=== PATIENT | male | born 2000 | race Caucasian/White ===

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

== ENCOUNTER 2021-01-02 17:28 | Emergency (ER) | payer MEDICAID ==
[2021-01-02] MEDS ORDERED: Erythromycin 1 GM OP ONE (17:29)
[2021-01-02 17:45] VITALS: BP 133/75; O2SAT 98
[2021-01-02] MEDS ORDERED: Fluor-I-Strip/Ful-Flo OP ONE ×3 (17:45→17:57)
[2021-01-02] MEDS ORDERED: TETRACAINE 0.5% STERI-UNIT SOL OP STA (17:46)
[2021-01-02] MEDS ORDERED: TETRACAINE 0.5% STERI-UNIT SOL OP ONE (17:47)
[2021-01-02] MEDS ORDERED: Eye-Stream Solution ONE ×2 (17:49→17:57)
[2021-01-02] MEDS ORDERED: Erythromycin 3.5 GM OPHTH. OP ONE (18:10)
--- NOTE | 2021-01-02 18:16 | ERPHSYRPT ---
- History of Present Illness Time Seen by Provider: 01/02/21 17:45 Source: patient Exam Limitations: no limitations Patient Subjective Stated Complaint: pt here for right eye pain for a week now Triage Nursing Assessment: pt alert, walked in, face mask in place, resp easy, has tearing and pain right eye Physician History: Patient is a 20-year-old male presents to our ED for evaluation of foreign body sensation to his right eyelid. Symptoms have been ongoing for approximately 1 week. 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 Patient was working on a park RV when rust fell onto his face. Patient states a pranay of rust fell into his eye. Patient did not irrigate his eye. Patient just tolerated the foreign body-like sensation up until today. No acute change in vision. Visual acuity is 20/20 on the left uninvolved eye. 20/30 in the right involved eye. No other issues reported. No nausea no vomiting no headache. No pain with extraocular motion. Symptoms are mild to moderate in intensity. Patient voices no other complaints or concerns at this time. Location: right eye Severity: moderate Apparent Injury: no Associated Symptoms: redness, foreign body sensation, blurred vision, No double vision Visual Assistive Devices: None Chemical Exposure: No Trauma: No Welding Arc/Tanning Bed Exposure: No Allergies/Adverse Reactions: No Known Drug Allergies Allergy (Verified 01/02/21 17:45) Hx Tetanus, Diphtheria Vaccination/Date Given: Yes (7 years) Hx Influenza Vaccination/Date Given: No Hx Pneumococcal Vaccination/Date Given: No Immunizations Up to Date: Yes Travel Risk - International Travel Have you traveled outside of the country in past 3 weeks: No - Coronavirus Screening Are you exhibiting any of the following symptoms?: No - Review of Systems Constitutional: No Symptoms, No Fever, No Chills Eyes: No Symptoms Ears, Nose, & Throat: No Symptoms Respiratory: No Symptoms, No Cough, No Dyspnea Cardiac: No Symptoms, No Chest Pain, No Edema, No Syncope Abdominal/Gastrointestinal: No Symptoms, No Abdominal Pain, No Nausea, No Vomiting, No Diarrhea Genitourinary Symptoms: No Symptoms, No Dysuria Musculoskeletal: No Symptoms, No Back Pain, No Neck Pain Skin: No Symptoms, No Rash Neurological: No Symptoms, No Dizziness, No Focal Weakness, No Sensory Changes Psychological: No Symptoms Endocrine: No Symptoms Hematologic/Lymphatic: No Symptoms Immunological/Allergic: No Symptoms All Other Systems: Reviewed and Negative - Past Medical History Pertinent Past Medical History: No Neurological History: No Pertinent History ENT History: No Pertinent History Cardiac History: No Pertinent History Respiratory History: No Pertinent History Endocrine Medical History: No Pertinent History Musculoskeletal History: No Pertinent History GI Medical History: No Pertinent History History: No Pertinent History Psycho-Social History: Other Male Reproductive Disorders: No Pertinent History Other Medical History: oppositional defiant disorder - Past Surgical History Past Surgical History: Yes Neuro Surgical History: No Pertinent History Cardiac: No Pertinent History Respiratory: No Pertinent History Gastrointestinal: No Pertinent History Genitourinary: No Pertinent History Musculoskeletal: Orthopedic Surgery Male Surgical History: No Pertinent History Other Surgical History: right thumb - Social History Smoking Status: Current every day smoker How long have you smoked: unknown Exposure to second hand smoke: Yes Alcohol Use: Socially Drug Use: marijuana Patient Lives Alone: Yes Significant Family History: no pertinent family hx - Nursing Vital Signs Nursing Vital Signs: Initial Vital Signs Temperature 97.0 F 01/02/21 17:38 Pulse Rate 78 01/02/21 17:38 Respiratory Rate 18 01/02/21 17:38 Blood Pressure 133/75 01/02/21 17:38 O2 Sat by Pulse Oximetry 98 01/02/21 17:38 Pain Scale Pain Intensity 0 - Physical Exam General Appearance: no apparent distress Vision Acuity Right Eye: 20/30 Vision Acuity Left Eye: 20/20 Intraocular Pressure (Tonopen): right (12) Eye Exam: right eye: PERRL, EOMI, left eye: normal inspection, bilateral eye: other (Negative Jayda sign. No obvious rust ring observed.) Ears, Nose, Throat Exam: normal ENT inspection, TMs normal, pharynx normal, moist mucous membranes, No dry mucous membranes, No TM abnormal (R), No TM abnormal (L) Neck Exam: normal inspection, non-tender, supple, full range of motion Respiratory Exam: normal breath sounds, lungs clear, No chest tenderness, No respiratory distress Cardiovascular Exam: regular rate/rhythm, normal heart sounds, normal peripheral pulses Gastrointestinal Exam: soft, normal bowel sounds, No tenderness Extremity Exam: normal inspection, normal range of motion Neurologic: alert, oriented x 3, cooperative, frit coater II-XII nml as tested, normal mood/affect Skin Exam: normal color, warm, dry Lymphatic: No adenopathy SpO2 Interpretation: normal SpO2: 98 O2 Delivery: Room Air - Course Nursing assessment & vital signs reviewed: Yes Ordered Tests: Medication Summary Discontinued Medications Generic Name Dose Route Start Last Admin Trade Name Jimmy PRN Reason Stop Dose Admin Erythromycin 3.5 gm 01/02/21 18:10 01/02/21 18:38 Erythromycin 3.5 Gm Ophth. OP 01/02/21 18:11 Not Given STAT ONE Eye Irrigation Solution Confirm 01/02/21 17:49 Eye-Stream Solution Administered 01/02/21 17:50 Dose 30 ml .ROUTE .STK-MED ONE Eye Irrigation Solution Confirm 01/02/21 17:57 Eye-Stream Solution Administered 01/02/21 17:58 Dose 30 ml .ROUTE .STK-MED ONE Eye Irrigation Solution 15 ml 01/02/21 18:36 01/02/21 18:37 Eye-Stream Solution OP 01/02/21 18:37 15 ml STAT ONE Administration Fluorescein Sodium 1 mg 01/02/21 17:45 01/02/21 17:52 Exojz-N-Nsdey/Ful-Aureliano OP 01/02/21 17:46 1 mg STAT ONE Administration Fluorescein Sodium Confirm 01/02/21 17:49 Xukox-S-Mxrbk/Ful-Aureliano Administered 01/02/21 17:50 Dose 1 mg OP .STK-MED ONE Fluorescein Sodium Confirm 01/02/21 17:57 Pipdr-O-Luhno/Ful-Aureliano Administered 01/02/21 17:58 Dose 1 mg OP .STK-MED ONE Tetracaine HCl 4 ml 01/02/21 17:46 01/02/21 17:51 Tetracaine 0.5% Steri-Unit Bridget OP 01/02/21 17:47 4 ml STAT STA Administration Tetracaine HCl Confirm 01/02/21 17:47 Tetracaine 0.5% Steri-Unit Bridget Administered 01/02/21 17:48 Dose 4 ml OP .STK-MED ONE - Progress Progress: improved Progress Note: 01/02/21 18:18 Patient reassessed. He is well. Perform using a Thomas lamp and fluorescein strip with tetracaine. No obvious foreign body or corneal abrasion observed. There was mild conjunctival injection. No pain with extraocular motion. Neg ative Jayda sign. Patient's pain/foreign body sensation resolved after application of tetracaine/fluorescein. Patient's involved eye was copiously irrigated with designated eye irrigation. Erythromycin ophthalmic antibiotic ointment was applied to the involved eye. A prescription for the same was forwarded the patient's pharmacy. Patient referred to diabetes clinical manager Alexandro Sher for further evaluation and treatment. Plan of care discussed with patient. He voices no other complaints or concerns at this time. His tetanus up-to-date. Counseled pt/family regarding: diagnosis, need for follow-up - Departure Departure Disposition: Home Clinical Impression: Eye pain Condition: Stable Critical Care Time: No Referrals: CASEY HARRIS, UNIVERSAL GRINDER SET UP OPERATOR [Primary Care Provider] - ALEXANDRO SHER OD [NON-STAFF PHY W/O PRIVILEGES] - Instructions: Foreign Body in Eye (DC) Additional Instructions: Discharge/Care Plan LISA GARDUNO was seen on 01/02/21 in the Emergency Room. The patient was counseled regarding Diagnosis,Lab results, Imaging studies, need for follow up and when to return to the Emergency Room. Prescriptions given: Discharge Note I have spoken with the patient and/or caregivers. I have explained the patient's condition, diagnosis and treatment plan based on the information available to me at this time. I have answered the patient's and/or caregiver's questions and addressed any concerns. The patient and/or caregivers have as good understanding of the patient's diagnosis, condition and treatment plan as can be expected at this point. The vital signs have been stable. The patient's condition is stable and appropriate for discharge from the emergency department. The patient will pursue further outpatient evaluation with the primary care physician or other designated or consulting physician as outlined in the discharge instructions. The patient and/or caregivers are agreeable to this plan of care and follow-up instructions have been explained in detail. The patient and/or caregivers have received these instruction. The patient/and or caregivers are aware that any significant change in condition or worsening of symptoms should prompt an immediate return to this or the closest emergency department or call 911. Prescriptions: Erythromycin Base 3.5 gm [Erythromycin 3.5 GM OPHTH.] 3.5 gm OP QID 7 Days #1 tube
[2021-01-02] MEDS ORDERED: Eye-Stream Solution OP ONE (18:36)
[2021-01-02 18:42] VITALS: PULSE 75
== END 2021-01-02 18:42 | disposition home or self-care (01) ==
LOC: ED 17:28
DX: H57.11 Ocular pain, right eye (principal); H53.8 Other visual disturbances; F17.210 Nicotine dependence, cigarettes, uncomplicated
CPT/HCPCS: 99283; A9270-GY

== ENCOUNTER 2025-01-04 12:55 | Emergency (ER) | payer MEDICAID, OTHER | END 2025-01-04 14:23 | disposition left against medical advice (07) | LOC: ED 12:55 | DX: Z53.21 Procedure and treatment not carried out due to patient leaving prior to being seen by health care provider (principal) ==

== ENCOUNTER 2025-09-21 11:07 | Emergency (ER) | payer MEDICAID ==
[2025-09-21 11:14] VITALS: RESP 12; TEMP 95; O2SAT 100
--- NOTE | 2025-09-21 11:54 | ERPHSYRPT ---
- History of Present Illness Time Seen by Provider: 09/21/25 11:50 Source: patient Exam Limitations: no limitations Patient Subjective Stated Complaint: PT STATES HE HAS A NEW COUGH Triage Nursing Assessment: PT ARRIVES TO THE ER BY FOOT. PT IS ABLE TO WALK INTO THE ER AND GET ONTO THE ER COT WITHOUT DIFFICULTY. PT IS ALERT AND ORIENTED X4, NO SIGNS OF RESPIRATORY DISTRESS, PULSES EQUAL BILATERALLY. PT STATES HE HAS HAD AN ONGOING COUGH SINCE LAST NIGHT. PT STATES THAT THE COUGH IS NOT PRODUCTIVE. PT HAS HAD NO FEVERS, NO SHORTNESS OF BREATH. PT STATES HE HAS NOT TAKEN ANY OVER THE COUNTER MEDICATION. PT STATES HE DOES SMOKE MARIJUANA AND M ETHAMPHETAMINES AND DOES NOT KNOW IF THAT HAS ANYTHING TO DO WITH IT. PT DOES STATE THAT HE IS HUNGRY AND WOULD LIKE SOME FOOD WHILE HE IS HERE. Physician History: 24-year-old male with no significant past medical history, history of smoking marijuana and methamphetamine use presents to our ED for evaluation of a cough. Cough began yesterday. It is dry nonproductive. No shortness of breath. No chest pain. No nausea no vomiting no diaphoresis. Patient currently asymptomatic. No cough observed. Patient voices no other complaints or concerns at this time. Portions of this note were created with voice recognition technology. There may be grammatical, spelling, punctuation or sound alike errors Timing/Duration: yesterday Severity: mild Modifying Factors: Improves With: nothing Associated Symptoms: denies symptoms Allergies/Adverse Reactions: haloperidol [From Haldol] Allergy (Verified 09/21/25 11:12) Swelling Home Medications: No Reportable Medications [No Reported Medications] 04/30/25 [History] Hx Tetanus, Diphtheria Vaccination/Date Given: No Hx Influenza Vaccination/Date Given: No Hx Pneumococcal Vaccination/Date Given: No Immunizations Up to Date: Yes Travel Risk - International Travel Have you traveled outside of the country in past 3 weeks: No - Emerging Infectious Disease Are you exhibiting symptoms associated with any current EIDs: Yes Symptoms: Cough: New Onset - Review of Systems All Other Systems: Reviewed and Negative - Past Medical History Pertinent Past Medical History: No Neurological History: No Pertinent History ENT History: No Pertinent History Cardiac History: No Pertinent History Respiratory History: No Pertinent History Endocrine Medical History: No Pertinent History Musculoskeletal History: No Pertinent History GI Medical History: No Pertinent History History: No Pertinent History Psycho-Social History: Other Male Reproductive Disorders: No Pertinent History Other Medical History: oppositional defiant disorder - Past Surgical History Past Surgical History: Yes Neuro Surgical History: No Pertinent History Cardiac: No Pertinent History Respiratory: No Pertinent History Gastrointestinal: No Pertinent History Genitourinary: No Pertinent History Musculoskeletal: Orthopedic Surgery Male Surgical History: No Pertinent History Other Surgical History: right thumb Significant Family History: no pertinent family hx - Social History Smoking Status: Never smoker Exposure to second hand smoke: Yes Drug Use: marijuana, methamphetamines - Social Determinants of Health Will the patient participate in the screening: Yes Do you worry about a steady place to live?: Yes Do you have any problems with any of the following?: No known problems In the past 12 months,have you had to go without utilities?: Yes Transportation Issues: Yes Has anyone in your support network made you feel unsafe?: No Have you or anyone in your house had to go w/o enough food: Yes - Nursing Vital Signs Nursing Vital Signs: Initial Vital Signs Pulse Rate 90 09/21/25 11:12 Respiratory Rate 12 09/21/25 11:12 Blood Pressure 122/70 09/21/25 11:12 O2 Sat by Pulse Oximetry 98 09/21/25 11:12 Pain Scale Pain Intensity 0 - Physical Exam General Appearance: no apparent distress, alert Eye Exam: PERRL/EOMI, eyes nml inspection Ears, Nose, Throat Exam: normal ENT inspection, TMs normal, pharynx normal Neck Exam: normal inspection, full range of motion Respiratory Exam: normal breath sounds, lungs clear, airway intact, No respiratory distress Cardiovascular Exam: regular rate/rhythm, normal heart sounds, normal peripheral pulses Gastrointestinal/Abdomen Exam: soft, normal bowel sounds, No tenderness, No mass Back Exam: normal inspection, normal range of motion, No CVA tenderness, No vertebral tenderness Extremity Exam: normal inspection, normal range of motion, pelvis stable Neurologic Exam: alert, oriented x 3, cooperative, normal mood/affect, sensation nml, No motor deficits Skin Exam: normal color, warm, dry, No rash Lymphatic Exam: No adenopathy SpO2 Interpretation: normal SpO2: 100 O2 Delivery: Room Air - Course Nursing assessment & vital signs reviewed: Yes - Radiology Exams Chest X-ray Interpretation: Teleradiologist Report (Portable chest again hyperinflated and clear. Heart not enlarged. Bony) Ordered Tests: Active Orders 24 hr Category Date Time Status CHEST 1 VIEW (PORTABLE) Stat Exams 09/21/25 11:34 Completed - Progress Progress: improved Progress Note: 24-year-old male with no significant past medical history presents to our ED with a dry nonproductive cough x 1 day. No other complaints. No fever no nausea no vomiting no diarrhea no rash. Physical exam nonremarkable. Lungs are clear. Chest x-ray negative for acute pathology. Patient requested a meal. Patient received 2 trays of lasagna. Patient states he is ready for discharge she voices no other complaints or concerns at this time. Regarding patient's cough conservative management only. [id number] cough suppressants as needed. No indication for further workup. Plan of care discussed with patient. He agrees to follow-up with his primary care doctor within 48 hours for reevaluation. He voices no other complaints or concerns at this time. Patient advised to discontinue licit drug use Portions of this note were created with voice recognition technology. There may be grammatical, spelling, punctuation or sound alike errors History obtained from patient Dr. Centeno independently reviewed and interpreted the chest x-ray. No acute findings. This is a preliminary read. However formal read completed. Per r adiologist no acute findings. Differential diagnosis includes bronchitis, asthma, pneumonia Complexity of problems addressed is moderate acute complicated. No critical care time. Complexity of data reviewed and analyzed is moderate. Test ordered test reviewed results analyzed and correlated clinically with history and physical exam. Risk of complication and or risk of morbidity/mortality of patient management is low. Vital stable. Time spent to discharge patient is approximately 15 minutes. Plan of care established for shared decision making. No social determinants of health present to impede follow-up. Portions of this note were created with voice recognition technology. There may be grammatical, spelling, punctuation or sound alike errors 09/21/25 12:20 Counseled pt/family regarding: diagnosis, need for follow-up, rad results - Departure Departure Disposition: Home Clinical Impression: Dry cough Condition: Stable Critical Care Time: No Referrals: CASEY HARRIS, ANIMAL NURSERY WORKER [Primary Care Provider, UNKNOWN] - Follow up/PCP as directed Instructions: Cough in adults Additional Instructions: Discharge/Care Plan LISA GARDUNO EDROCAEL was seen on 09/21/25 in the Emergency Room. The patient was counseled regarding Diagnosis,Lab results, Imaging studies, need for follow up and when to return to the Emergency Room. Prescriptions given: Discharge Note I have spoken with the patient and/or caregivers. I have explained the patient's condition, diagnosis and treatment plan based on the information available to me at this time. I have answered the patient's and/or caregiver's questions and addressed any concerns. The patient and/or caregivers have as good understanding of the patient's diagnosis, condition and treatment plan as can be expected at this point. The vital signs have been stable. The patient's condition is stable and appropriate for discharge from the emergency department. The patient will pursue further outpatient evaluation with the primary care physician or other designated or consulting physician as outlined in the discharge instructions. The patient and/or caregivers are agreeable to this plan of care and follow-up instructions have been explained in detail. The patient and/or caregivers have received these instruction. The patient/and or caregivers are aware that any significant change in condition or worsening of symptoms should prompt an immediate return to this or the closest emergency department or call 911.
--- NOTE | 2025-09-21 12:00 | XRAY ---
Indication: Cough Comparison: May 13, 2019 Portable chest again hyperinflated and clear. Heart not enlarged. Bony thorax intact again with minimal levoscoliosis. No new/acute findings.
[2025-09-21 12:10] VITALS: BP 107/75; PULSE 90
== END 2025-09-21 12:29 | disposition home or self-care (01) ==
LOC: ED 11:07
DX: R05.1 Acute cough (principal); Z59.819 Housing instability, housed unspecified; Z59.12 Inadequate housing utilities; Z59.82 Transportation insecurity; Z59.41 Food insecurity